=== PATIENT | female | born 1950 | race Asian ===

== ENCOUNTER 2018-10-02 18:35 | Inpatient (IN) | payer MEDICARE, OTHER ==
[2018-10-02] MEDS: Sodium Chloride 0.9% 10 ML Syringe FLUSH PRN (18:40)
[2018-10-02] MEDS ORDERED: Labetalol 20 MG/4 ML Syringe IVPUSH ONE (18:49)
[2018-10-02] MEDS ORDERED: Ondansetron 4 MG/2 ML SDV IVPUSH ONE (18:49)
--- NOTE | 2018-10-02 18:51 | EDM.PDOC ---
ED HPI GENERAL MEDICAL PROBLEM - General Stated Complaint: VOMITING L SIDED WEAKNESS Time Seen by Provider: 10/02/18 18:35 Source of Information: Reports: Patient, Family History Limitations: Reports: Physical Impairment - History of Present Illness INITIAL COMMENTS - FREE TEXT/NARRATIVE: 68 y.o. [place] female came with her family to the ed because of fever, N/V. Pt has left sided hemiparesis and is not able to elevate or stand on her right leg. She is bed ridden for several years, was in and out of hospice and needs 24 hours care. She is taken care by her boyfriend. On arrival, the pt was following commands, was not able to elevate her right leg. not moving her left upper and lower extremity. She was able to elevate her right for a sec or so only. Her BP was 210/120 on arrival. As per boyfriend, pt take her pills daily and eats well. Pt is not able to give a HPI, son is present as well. BP 229/ 120 Pulse 145 Temp 38.6 RR 20 Pulse ox 97% on RA. Onset Date: 08/29/18 Onset Time: 06:00 Duration: Week(s):, Chronic Location: Reports: Generalized Quality: Reports: Other Severity: Moderate Improves with: Reports: Rest Worsens with: Reports: Movement Context: Reports: Other Associated Symptoms: Reports: Weakness - Related Data Allergies Allergy/AdvReac Type Severity Reaction Status Date / Time No Known Allergies Allergy Verified 10/02/18 19:35 Home Meds: Home Meds Acetaminophen 650 mg PO BID 10/02/18 [History] Aspirin [Halfprin] 81 mg PO DAILY 10/02/18 [History] Lisinopril 20 mg PO DAILY 10/02/18 [History] cloNIDine [Catapres] 0.1 mg PO BID 10/02/18 [History] metFORMIN [Glucophage] 500 mg PO BIDMEALS 10/02/18 [History] Ondansetron [Zofran ODT] 4 mg PO Q6H PRN #10 tab.dis 10/03/18 [Rx] Sennosides/Docusate Sodium [Senna-S] 1 tab PO ASDIRECTED 10/03/18 [History] levoFLOXacin [Levaquin] 500 mg PO DAILY #5 tab 10/03/18 [Rx] Past Medical History HEENT History: Reports: Cataract Cardiovascular History: Reports: Hypertension 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: Social & Family History - Family History Family Medical History: Noncontributory - Caffeine Use Caffeine Use: Reports: None ED ROS GENERAL - Review of Systems Review Of Systems: Unable To Obtain ED EXAM, GI/ABD - Physical Exam Exam: See Below Exam Limited By: Physical Impairment General Appearance: Alert, Cachetic Eyes: Bilateral: Normal Appearance Ears: Normal External Exam Nose: Normal Inspection, No Blood Throat/Mouth: Normal Voice, No Airway Compromise Head: Atraumatic, Normocephalic Neck: Normal Inspection, Supple, Non-Tender Respiratory/Chest: No Respiratory Distress, Lungs Clear, Normal Breath Sounds, Chest Non-Tender Cardiovascular: Normal Peripheral Pulses, Regular Rate, Rhythm GI/Abdominal Exam: Normal Bowel Sounds, Soft, Non-Tender, No Organomegaly, No Distention, No Abnormal Bruit, No Mass, Pelvis Stable (Female) Exam: Deferred Rectal (Female) Exam: Deferred Back Exam: Normal Inspection, Full Range of Motion Extremities: Normal Inspection, Limited Range of Motion Neurological: Alert, Abnormal Gait (bedridden) Psychiatric: Normal Affect, Normal Mood Skin Exam: Warm, Dry, Normal Color Lymphatic: No Adenopathy EKG INTERPRETATION EKG Date: 10/02/18 Time: 18:50 Rhythm: NSR Rate (Beats/Min): 128 [place]: Normal P-Wave: Present QRS: Normal ST-T: Normal QT: Normal Comparison: NA - No Prior EKG Course - Vital Signs Text/Narrative:: 68 y.o. [place] female came with her family to the ed because of fever, N/V. Pt has left sided hemiparesis and is not able to elevate or stand on her right leg. She is bed ridden for several years, was in and out of hospice and needs 24 hours care. She is taken care by her boyfriend. On arrival, the pt was following commands, was not able to elevate her right leg. not moving her left upper and lower extremity. She was able to elevate her right for a sec or so only. Her BP was 210/120 on arrival. As per boyfriend, pt take her pills daily and eats well. Pt is not able to give a HPI, son is present as well. BP 229/ 120 Pulse 145 Temp 38.6 RR 20 Pulse ox 97% on RA. PE: Weak, cachectic female with Hypertension, bedridden. unkempt Imaging: CXR: NAD Labs: WBC 18K INR nl K 3.0 Lactic acid 2.7 UA: Hematuria Bcx drawn Impression: HTN urgency, Hypokalemia, elevated WBC (source of infection not found) DM, vulnerable adult, S/P CVAs, bed ridden, Sinus Tachycardia, Dehydration Tx: Labetolol, NS , Zofran, Levoquine Reexam: Improved Plan: Admit for obs Last Recorded V/S: Last Vital Signs Temp 37.9 C 10/05/18 19:30 Pulse 100 10/05/18 19:30 Resp 20 10/05/18 19:30 BP 145/85 H 10/05/18 20:03 Pulse Ox 96 10/05/18 19:30 - Orders/Labs/Meds Orders: Medication Orders Acetaminophen (Tylenol) 650 mg PO BID [facility] Last Admin: 10/05/18 20:03 Dose: 650 mg Admin: 10/05/18 10:33 Dose: 650 mg Admin: 10/04/18 21:07 Dose: 650 mg Admin: 10/04/18 10:40 Dose: 650 mg Admin: 10/03/18 21:56 Dose: Acetaminophen (Tylenol) 650 mg RECTAL Q4H PRN PRN Reason: Temperature Last Admin: 10/04/18 15:43 Dose: 650 mg Admin: 10/03/18 21:28 Dose: 650 mg Admin: 10/03/18 17:44 Dose: 650 mg Aspirin (Halfprin) 81 mg PO DAILY [facility] Last Admin: 10/05/18 10:32 Dose: 81 mg Admin: 10/04/18 10:40 Dose: 81 mg Clonidine HCl (Catapres) 0.1 mg PO BID [facility] Last Admin: 10/05/18 20:03 Dose: 0.1 mg Admin: 10/05/18 10:30 Dose: 0.1 mg Admin: 10/04/18 21:01 Dose: 0.1 mg Admin: 10/04/18 10:51 Dose: 0.1 mg Enoxaparin Sodium (Lovenox) 40 mg SUBCUT DAILY [facility] Last Admin: 10/05/18 10:33 Dose: 40 mg Admin: 10/04/18 10:51 Dose: 40 mg Levofloxacin/Dextrose 500 mg/ (Premix) 100 mls @ 100 mls/hr IV Q24H [facility] Last Admin: 10/05/18 10:36 Dose: 100 mls/hr Infusion: 10/04/18 11:43 Dose: 100 mls/hr Admin: 10/04/18 10:43 Dose: 100 mls/hr Insulin Human Lispro (Humalog) 0 unit SUBCUT TIDMEALS [facility]; Protocol Last Admin: 10/05/18 18:01 Dose: 3 units Admin: 10/05/18 11:47 Dose: 4 units Labetalol HCl (Normodyne) 10 mg IV ONETIME PRN; Protocol PRN Reason: Hypertension Last Admin: 10/03/18 21:28 Dose: 10 mg Lisinopril (Prinivil) 20 mg PO DAILY [facility] Last Admin: 10/05/18 10:33 Dose: 20 mg Admin: 10/04/18 10:50 Dose: 20 mg Ondansetron HCl (Zofran) 4 mg IVPUSH Q4H PRN PRN Reason: Nausea/Vomiting Last Admin: 10/04/18 12:20 Dose: 4 mg Admin: 10/03/18 13:30 Dose: 4 mg Potassium Chloride (Klor-Con M20) 20 meq PO BIDMEALS [facility] Last Admin: 10/05/18 18:09 Dose: 20 meq Admin: 10/05/18 10:32 Dose: 20 meq Sodium Chloride (Saline Flush) 10 ml FLUSH ASDIRECTED PRN PRN Reason: Keep Vein Open Last Admin: 10/05/18 11:38 Dose: 10 ml Admin: 10/05/18 09:00 Dose: 10 ml Admin: 10/04/18 19:48 Dose: 10 ml Admin: 10/04/18 17:01 Dose: 10 ml Admin: 10/04/18 12:00 Dose: 10 ml Admin: 10/04/18 09:00 Dose: 10 ml Admin: 10/03/18 06:08 Dose: 10 ml Admin: 10/03/18 05:58 Dose: 10 ml Admin: 10/02/18 18:40 Dose: 10 ml Vancomycin HCl (Pharmacy To Dose - Vancomycin) 1 dose .XX ASDIRECTED [facility] Labs: Laboratory Tests 10/02/18 10/02/18 10/02/18 Range/Units 19:00 19:00 19:00 WBC 17.6 H (4.5-12.0) X10-3/uL RBC 5.31 H (3.23-5.20) x10(6)uL Hgb 15.4 (11.5-15.5) g/dL Hct 45.8 (30.0-51.3) % MCV 86.3 (80-96) fL MCH 29.0 (27.7-33.6) pg MCHC 33.6 (32.2-35.4) g/dL RDW 12.4 (11.5-15.5) % Plt Count 333 (125-369) X10(3)uL MPV 8.5 (7.4-10.4) fL Add Manual Diff Yes Neutrophils % (Manual) 75 (46-82) % Band Neutrophils % 5 (0-6) % Lymphocytes % (Manual) 13 (13-37) % Monocytes % (Manual) 4 (4-12) % Eosinophils % (Manual) 3 (0-5) % PT 10.4 (8.7-11.1) INR 1.07 (0.89-1.13) Sodium 139 (135-145) mmol/L Potassium 3.0 L D (3.5-5.3) mmol/L Chloride 99 L (100-110) mmol/L Carbon Dioxide 27 (21-32) mmol/L BUN 11 (7-18) mg/dL Creatinine 0.6 (0.55-1.02) mg/dL Est Cr Clr Drug Dosing TNP Estimated GFR (MDRD) > 60 (>60) BUN/Creatinine Ratio 18.3 (9-20) Glucose 241 H D (80-116) mg/dL Lactic Acid (0.4-2.2) mmol/L Calcium 9.1 (8.6-10.2) mg/dL Troponin I (<0.017-0.056) ng/mL Urine Color (YELLOW) Urine Appearance (CLEAR) Urine pH (5.0-6.5) Ur Specific [place] (1.010-1.025) Urine Protein (NEGATIVE) mg/dL Urine Glucose (UA) (NORMAL) mg/dL Urine Ketones (NEGATIVE) mg/dL Urine Occult Blood (NEGATIVE) Urine Nitrite (NEGATIVE) Urine Bilirubin (NEGATIVE) Urine Urobilinogen (NEGATIVE) mg/dL Ur Leukocyte Esterase (NEGATIVE) Urine RBC (0-5) Urine WBC (0-5) Ur Squamous Epith Cells (NS,R,O) Urine Bacteria (NS) 10/02/18 10/02/18 10/02/18 Range/Units 19:00 19:00 19:30 WBC (4.5-12.0) X10-3/uL RBC (3.23-5.20) x10(6)uL Hgb (11.5-15.5) g/dL Hct (30.0-51.3) % MCV (80-96) fL MCH (27.7-33.6) pg MCHC (32.2-35.4) g/dL RDW (11.5-15.5) % Plt Count (125-369) X10(3)uL MPV (7.4-10.4) fL Add Manual Diff Neutrophils % (Manual) (46-82) % Band Neutrophils % (0-6) % Lymphocytes % (Manual) (13-37) % Monocytes % (Manual) (4-12) % Eosinophils % (Manual) (0-5) % PT (8.7-11.1) INR (0.89-1.13) Sodium (135-145) mmol/L Potassium (3.5-5.3) mmol/L Chloride (100-110) mmol/L Carbon Dioxide (21-32) mmol/L BUN (7-18) mg/dL Creatinine (0.55-1.02) mg/dL Est Cr Clr Drug Dosing Estimated GFR (MDRD) (>60) BUN/Creatinine Ratio (9-20) Glucose (80-116) mg/dL Lactic Acid 2.7 H (0.4-2.2) mmol/L Calcium (8.6-10.2) mg/dL Troponin I 0.021 (<0.017-0.056) ng/mL Urine Color Yellow (YELLOW) Urine Appearance Cloudy (CLEAR) Urine pH 6.0 (5.0-6.5) Ur Specific [place] 1.020 (1.010-1.025) Urine Protein Negative (NEGATIVE) mg/dL Urine Glucose (UA) >1000 H (NORMAL) mg/dL Urine Ketones 15 H (NEGATIVE) mg/dL Urine Occult Blood Moderate H (NEGATIVE) Urine Nitrite Negative (NEGATIVE) Urine Bilirubin Negative (NEGATIVE) Urine Urobilinogen Normal (NEGATIVE) mg/dL Ur Leukocyte Esterase Negative (NEGATIVE) Urine RBC 5-10 H (0-5) Urine WBC 0-5 (0-5) Ur Squamous Epith Cells Few H (NS,R,O) Urine Bacteria Moderate H (NS) Meds: Medications Generic Name Dose Route Start Last Admin Trade Name Freq PRN Reason Stop Dose Admin Acetaminophen 650 mg 10/03/18 21:00 10/05/18 20:03 Tylenol PO 650 mg BID VINAYAK Administration Acetaminophen 650 mg 10/03/18 17:30 10/04/18 15:43 Tylenol RECTAL 650 mg Q4H PRN Administration Temperature Aspirin 81 mg 10/04/18 09:00 10/05/18 10:32 Halfprin PO 81 mg DAILY VINAYAK Administration Clonidine HCl 0.1 mg 10/04/18 09:15 10/05/18 20:03 Catapres PO 0.1 mg BID VINAYAK Administration Enoxaparin Sodium 40 mg 10/04/18 09:15 10/05/18 10:33 Lovenox SUBCUT 40 mg DAILY VINAYAK Administration Levofloxacin/Dextrose 500 mg/ 100 mls @ 100 mls/hr 10/04/18 09:00 10/05/18 10 :36 Premix IV 100 mls/hr Q24H VINAYAK Administration Insulin Human Lispro 0 unit 10/05/18 12:00 10/05/18 18:01 Humalog SUBCUT 3 units TIDMEALS VINAYAK Administration Protocol Labetalol HCl 10 mg 10/03/18 17:00 10/03/18 21:28 Normodyne IV 10 mg ONETIME PRN Administration Hypertension Protocol Lisinopril 20 mg 10/04/18 09:15 10/05/18 10:33 Prinivil PO 20 mg DAILY VINAYAK Administration Ondansetron HCl 4 mg 10/03/18 11:32 10/04/18 12:20 Zofran IVPUSH 4 mg Q4H PRN Administration Nausea/Vomiting Potassium Chloride 20 meq 10/05/18 09:00 10/05/18 18:09 Klor-Con M20 PO 20 meq BIDMEALS VINAYAK Administration Sodium Chloride 10 ml 10/02/18 18:40 10/05/18 11:38 Saline Flush FLUSH 10 ml ASDIRECTED PRN Administration Keep Vein Open Vancomycin HCl 1 dose 10/03/18 17:15 Pharmacy To Dose - Vancomycin .XX ASDIRECTED VINAYAK Discontinued Medications Generic Name Dose Route Start Last Admin Trade Name Shen PRN Reason Stop Dose Admin Ceftriaxone Sodium 2 gm 10/03/18 17:00 10/04/18 16:57 Rocephin IVPUSH 2 gm Q24H VINAYAK Administration Sodium Chloride 1,000 mls @ 999 mls/hr 10/02/18 21:40 10/02/18 21:42 Normal Saline IV 10/02/18 22:40 999 mls/hr .BOLUS ONE Administration Levofloxacin/Dextrose 500 mg/ 100 mls @ 100 mls/hr 10/03/18 05:13 10/03/18 05 :52 Premix IV 10/03/18 06:12 100 mls/hr ONETIME ONE Administration Sodium Chloride 1,000 mls @ 125 mls/hr 10/03/18 11:45 10/03/18 23:05 Normal Saline IV 125 mls/hr ASDIRECTED VINAYAK Administration Vancomycin HCl 750 mg/ Sodium 250 mls @ 167 mls/hr 10/03/18 18:00 10/05/18 08 :36 Chloride IV Not Given Q12H VINAYAK Vancomycin HCl 750 mg/ 250 mls @ 166.667 mls/hr 10/05/18 08:00 10/05/18 07:12 Vancomycin HCl 500 mg/ Sodium IV 166.667 mls/hr Chloride Q12H VINAYAK Administration Labetalol HCl 10 mg 10/02/18 18:49 10/02/18 19:02 Normodyne IVPUSH 10/02/18 18:50 10 mg ONETIME ONE Administration Protocol Labetalol HCl 20 mg 10/03/18 16:35 10/03/18 16:53 Normodyne IVPUSH 10/03/18 16:36 20 mg ONETIME ONE Administration Protocol Ondansetron HCl 8 mg 10/02/18 18:49 10/02/18 18:55 Zofran IVPUSH 10/02/18 18:50 8 mg ONETIME ONE Administration Ondansetron HCl 8 mg 10/03/18 05:51 10/03/18 06:03 Zofran IVPUSH 10/03/18 05:52 8 mg ONETIME ONE Administration Ondansetron HCl Confirm 10/03/18 06:06 10/03/18 06:31 Zofran Administered 10/03/18 06:07 Not Given Dose 4 mg .ROUTE .STK-MED ONE Potassium Chloride 40 meq 10/02/18 20:39 10/02/18 20:43 Klor-Con M20 PO 10/02/18 20:40 40 meq ONETIME ONE Administration Vancomycin HCl Confirm 10/03/18 17:17 10/03/18 17:32 Vancomycin Administered 10/03/18 17:18 Not Given Dose 1 gm .ROUTE .STK-MED ONE Vancomycin HCl 1 dose 10/03/18 21:01 Pharmacy To Dose - Vancomycin .XX ASDIRECTED [facility] Departure - Departure Time of Disposition: 21:00 Disposition: Refer to Observation Condition: Fair Clinical Impression: HTN (hypertension) Qualifiers: Hypertension type: essential hypertension Qualified Code(s): I10 - Essential ( primary) hypertension - Discharge Information
[2018-10-02] MEDS ORDERED: Potassium Chloride 20 MEQ Tab.ER PO ONE (20:39)
[2018-10-02] MEDS ORDERED: Sodium Chloride 0.9% 1,000 ML IV ONE (21:40)
[2018-10-03] MEDS ORDERED: Levofloxacin/Dextrose 5%-Water 500 MG in Premix Bag 1 BAG IV ONE (05:13)
[2018-10-03] MEDS ORDERED: Ondansetron 4 MG/2 ML SDV IVPUSH ONE (05:51)
[2018-10-03] MEDS: Sodium Chloride 0.9% 10 ML Syringe FLUSH PRN ×2 (05:58→06:08)
[2018-10-03] MEDS ORDERED: Ondansetron 4 MG/2 ML SDV ONE (06:06)
--- NOTE | 2018-10-03 10:58 | PCM.HP ---
H&P History of Present Illness - General Date of Service: 10/03/18 Admit Problem/Dx: Admission Diagnosis/Problem Admission Diagnosis/Problem Hypertension Source of Information: Family, Old Records History Limitations: Reports: Language Barrier - History of Present Illness Initial Comments - Free Text/Narative: 68-year-old female who came to the ER because of fever and vomiting. Symptoms were sudden onset at 4 PM. She vomited at least 4 times last night and twice this morning. She denies abdominal pain diarrhea, cough chest pain or shortness of breath. She has a history of a pontine stroke;hypertension; uncontrolled type 2 diabetes and she is bedridden for a few months,wears depends. - Related Data Allergies/Adverse Reactions: Allergies Allergy/AdvReac Type Severity Reaction Status Date / Time No Known Allergies Allergy Verified 10/02/18 19:35 Home Medications: Home Meds Acetaminophen 650 mg PO BID 10/02/18 [History] Aspirin [Halfprin] 81 mg PO DAILY 10/02/18 [History] Lisinopril 20 mg PO DAILY 10/02/18 [History] cloNIDine [Catapres] 0.1 mg PO BID 10/02/18 [History] metFORMIN [Glucophage] 500 mg PO BIDMEALS 10/02/18 [History] Sennosides/Docusate Sodium [Senna-S] 1 tab PO ASDIRECTED 10/03/18 [History] Past Medical History HEENT History: Reports: Cataract Cardiovascular History: Reports: 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 Exam - Exam Exam: See Below - Vital Signs Vital Signs: Last Vital Signs Temp 99.6 F 10/03/18 08:01 Pulse 116 H 10/03/18 08:01 Resp 16 10/03/18 08:01 BP 144/74 H 10/03/18 08:01 Pulse Ox 96 10/03/18 08:01 Weight: 51.313 kg - Exam General: Alert HEENT: PERRLA Neck: Supple Lungs: Clear to Auscultation Cardiovascular: Regular Rate GI/Abdominal Exam: Normal Bowel Sounds, Soft, Non-Tender Extremities: Normal Inspection, No Pedal Edema Skin: Warm Neurological: Cranial Nerves Intact Neuro Extensive - Mental Status: Alert, Oriented x3, Memory Intact Psychiatric: Depressed - Patient Data Lab Results Last 24 hrs: Laboratory Results - last 24 hr 10/02/18 10/02/18 10/02/18 Range/Units 19:00 19:00 19:00 WBC 17.6 H (4.5-12.0) X10-3/uL RBC 5.31 H (3.23-5.20) x10(6)uL Hgb 15.4 (11.5-15.5) g/dL Hct 45.8 (30.0-51.3) % MCV 86.3 (80-96) fL MCH 29.0 (27.7-33.6) pg MCHC 33.6 (32.2-35.4) g/dL RDW 12.4 (11.5-15.5) % Plt Count 333 (125-369) X10(3)uL MPV 8.5 (7.4-10.4) fL Add Manual Diff Yes Neutrophils % (Manual) 75 (46-82) % Band Neutrophils % 5 (0-6) % Lymphocytes % (Manual) 13 (13-37) % Monocytes % (Manual) 4 (4-12) % Eosinophils % (Manual) 3 (0-5) % PT 10.4 (8.7-11.1) INR 1.07 (0.89-1.13) Sodium 139 (135-145) mmol/L Potassium 3.0 L D (3.5-5.3) mmol/L Chloride 99 L (100-110) mmol/L Carbon Dioxide 27 (21-32) mmol/L BUN 11 (7-18) mg/dL Creatinine 0.6 (0.55-1.02) mg/dL Est Cr Clr Drug Dosing TNP Estimated GFR (MDRD) > 60 (>60) BUN/Creatinine Ratio 18.3 (9-20) Glucose 241 H D (80-116) mg/dL Lactic Acid (0.4-2.2) mmol/L Calcium 9.1 (8.6-10.2) mg/dL Troponin I (<0.017-0.056) ng/mL Urine Color (YELLOW) Urine Appearance (CLEAR) Urine pH (5.0-6.5) Ur Specific [place] (1.010-1.025) Urine Protein (NEGATIVE) mg/dL Urine Glucose (UA) (NORMAL) mg/dL Urine Ketones (NEGATIVE) mg/dL Urine Occult Blood (NEGATIVE) Urine Nitrite (NEGATIVE) Urine Bilirubin (NEGATIVE) Urine Urobilinogen (NEGATIVE) mg/dL Ur Leukocyte Esterase (NEGATIVE) Urine RBC (0-5) Urine WBC (0-5) Ur Squamous Epith Cells (NS,R,O) Urine Bacteria (NS) 10/02/18 10/02/18 10/02/18 Range/Units 19:00 19:00 19:30 WBC (4.5-12.0) X10-3/uL RBC (3.23-5.20) x10(6)uL Hgb (11.5-15.5) g/dL Hct (30.0-51.3) % MCV (80-96) fL MCH (27.7-33.6) pg MCHC (32.2-35.4) g/dL RDW (11.5-15.5) % Plt Count (125-369) X10(3)uL MPV (7.4-10.4) fL Add Manual Diff Neutrophils % (Manual) (46-82) % Band Neutrophils % (0-6) % Lymphocytes % (Manual) (13-37) % Monocytes % (Manual) (4-12) % Eosinophils % (Manual) (0-5) % PT (8.7-11.1) INR (0.89-1.13) Sodium (135-145) mmol/L Potassium (3.5-5.3) mmol/L Chloride (100-110) mmol/L Carbon Dioxide (21-32) mmol/L BUN (7-18) mg/dL Creatinine (0.55-1.02) mg/dL Est Cr Clr Drug Dosing Estimated GFR (MDRD) (>60) BUN/Creatinine Ratio (9-20) Glucose (80-116) mg/dL Lactic Acid 2.7 H (0.4-2.2) mmol/L Calcium (8.6-10.2) mg/dL Troponin I 0.021 (<0.017-0.056) ng/mL Urine Color Yellow (YELLOW) Urine Appearance Cloudy (CLEAR) Urine pH 6.0 (5.0-6.5) Ur Specific [place] 1.020 (1.010-1.025) Urine Protein Negative (NEGATIVE) mg/dL Urine Glucose (UA) >1000 H (NORMAL) mg/dL Urine Ketones 15 H (NEGATIVE) mg/dL Urine Occult Blood Moderate H (NEGATIVE) Urine Nitrite Negative (NEGATIVE) Urine Bilirubin Negative (NEGATIVE) Urine Urobilinogen Normal (NEGATIVE) mg/dL Ur Leukocyte Esterase Negative (NEGATIVE) Urine RBC 5-10 H (0-5) Urine WBC 0-5 (0-5) Ur Squamous Epith Cells Few H (NS,R,O) Urine Bacteria Moderate H (NS) Result Diagrams: 10/02/18 19:00 10/02/18 19:00 - Problem List (1) Acute gastritis SNOMED Code(s): 86001562 ICD Code: K29.00 - ACUTE GASTRITIS WITHOUT BLEEDING Status: Acute Current Visit: Yes Qualifiers: Gastritis type: unspecified gastritis Gastritis bleeding: without bleeding Qualified Code(s): K29.00 - Acute gastritis without bleeding (2) UTI (urinary tract infection) SNOMED Code(s): 54944967 ICD Code: N39.0 - URINARY TRACT INFECTION, SITE NOT SPECIFIED Status: Acute Current Visit: Yes Qualifiers: Urinary tract infection type: acute cystitis Hematuria presence: without hematuria Qualified Code(s): N30.00 - Acute cystitis without hematuria (3) 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 SNOMED Code(s): 383950218 ICD Code: Z86.73 - PRSNL HX OF TIA (TIA), AND CEREB INFRC W/O RESID DEFICITS Status: Chronic Current Visit: Yes (4) HTN (hypertension) SNOMED Code(s): 98600415 ICD Code: I10 - ESSENTIAL (PRIMARY) HYPERTENSION Status: Chronic Current Visit: Yes Qualifiers: Hypertension type: essential hypertension Qualified Code(s): I10 - Essential (primary) hypertension (5) Uncontrolled diabetes mellitus SNOMED Code(s): 93892461, 690479328 ICD Code: E11.65 - TYPE 2 DIABETES MELLITUS WITH HYPERGLYCEMIA Status: Chronic Current Visit: Yes Qualifiers: Diabetes mellitus type: type 2 Glycemic state: with hyperglycemia Qualified Code(s): E11.65 - Type 2 diabetes mellitus with hyperglycemia (6) MDD (major depressive disorder) SNOMED Code(s): 387614439 ICD Code: F32.9 - MAJOR DEPRESSIVE DISORDER, SINGLE EPISODE, UNSPECIFIED Status: Acute Current Visit: Yes Qualifiers: Major depression recurrence: recurrent Psychotic features: with psychotic features (7) HLD (hyperlipidemia) SNOMED Code(s): 01144031 ICD Code: E78.5 - HYPERLIPIDEMIA, UNSPECIFIED Status: Acute Current Visit : Yes Qualifiers: Hyperlipidemia type: pure hypercholesterolemia Qualified Code(s): E78.00 - Pure hypercholesterolemia, unspecified; E78.0 - Pure hypercholesterolemia Problem List Initiated/Reviewed/Updated: Yes Orders Last 24hrs: Active Orders 24 hr Category Date Time Status Patient Status [ADT] Routine ADT 10/02/18 21:32 Active EKG Documentation Completion [RC] ASDIRECTED Care 10/02/18 18:48 Active Oxygen Therapy [RC] PRN Care 10/02/18 21:32 Active Up With Assistance [RC] ASDIRECTED Care 10/02/18 21:32 Active VTE/DVT Education [RC] Per Unit Routine Care 10/02/18 21:32 Active Vital Signs [RC] Q4H Care 10/02/18 21:32 Active Pureed Diet [DIET] Diet 10/03/18 Breakfast Active Thickened Liquids [DIET] Diet 10/03/18 Breakfast Active Chest 1V Frontal [CR] Stat Exams 10/02/18 18:49 Taken Head wo Cont [CT] Stat Exams 10/02/18 19:05 Taken CULTURE BLOOD [BC] Urgent Lab 10/02/18 19:00 Received CULTURE BLOOD [BC] Urgent Lab 10/03/18 05:22 Received Sodium Chloride 0.9% [Saline Flush] Med 10/02/18 18:40 Active 10 ml FLUSH ASDIRECTED PRN Blood Culture x2 Reflex Set [OM.PC] Urgent Oth 10/02/18 18:49 Ordered Blood Culture x2 Reflex Set [OM.PC] Urgent Oth 10/03/18 05:10 Ordered Blood Culture x2 Reflex Set [OM.PC] Urgent Oth 10/03/18 05:12 Ordered Peripheral IV Insertion Adult [OM.PC] Routine Oth 10/02/18 18:40 Ordered Resuscitation Status Routine Resus Stat 10/02/18 21:32 Ordered EKG 12 Lead [EK] Routine Ther 10/02/18 18:48 Ordered Medication Orders Sodium Chloride (Saline Flush) 10 ml FLUSH ASDIRECTED PRN PRN Reason: Keep Vein Open Last Admin: 10/03/18 06:08 Dose: 10 ml Admin: 10/03/18 05:58 Dose: 10 ml Admin: 10/02/18 18:40 Dose: 10 ml Assessment/Plan Comment:: This morning,she feels much better. Got 1 L of bolus at the ED. I am going to have her eat and drink,if able to keep down,will discharge home and follow up at the clinic. DC home with Debbie
[2018-10-03] MEDS: Sodium Chloride 0.9% 1,000 ML IV SCH ×2 (13:26→23:05)
[2018-10-03] MEDS: Ondansetron 4 MG/2 ML SDV IVPUSH PRN (13:30)
[2018-10-03] MEDS ORDERED: Labetalol 20 MG/4 ML Syringe IVPUSH ONE (16:35)
[2018-10-03] MEDS ORDERED: Labetalol 20 MG/4 ML Syringe IV PRN (17:00)
[2018-10-03] MEDS: cefTRIAXone 2 GM Vial IVPUSH SCH (17:08)
[2018-10-03] MEDS ORDERED: Vancomycin 1 GM SDV ONE (17:17)
[2018-10-03] MEDS: Acetaminophen 650 MG Supp RECTAL PRN ×2 (17:44→21:28)
[2018-10-03] MEDS: Acetaminophen 325 MG Tab PO SCH (21:56)
[2018-10-04] MEDS: Sodium Chloride 0.9% 10 ML Syringe FLUSH PRN ×4 (09:00→19:48)
--- NOTE | 2018-10-04 09:05 | PCM.PN ---
- General Info Date of Service: 10/04/18 Subjective Update: Mrs. Lees had a low-grade fever the last 24 hours, and was more lethargic.Her blood pressure has been uncontrolled. Blood cultures 1 out of 4 bottles is growing gram-negative bacilli. We tried feeding yesterday with no success, persistent throwing up and gagging was reported.. Functional Status: Reports: Pain Controlled - Review of Systems HEENT: Reports: No Symptoms Pulmonary: Reports: No Symptoms Cardiovascular: Reports: No Symptoms Gastrointestinal: Reports: Difficulty Swallowing, Vomiting. Denies: Abdominal Pain, Constipation Genitourinary: Reports: No Symptoms Musculoskeletal: Reports: No Symptoms - Patient Data Vitals - Most Recent: Last Vital Signs Temp 98.7 F 10/04/18 03:00 Pulse 106 H 10/04/18 03:00 Resp 20 10/04/18 03:00 BP 169/91 H 10/04/18 03:00 Pulse Ox 94 L 10/04/18 03:00 Weight - Most Recent: 51.313 kg I&O - Last 24 Hours: Intake & Output 10/03/18 10/04/18 10/04/18 22:59 06:59 14:59 Intake Total 787 1100 Balance 787 1100 Lab Results Last 24 Hours: Laboratory Results - last 24 hr 10/04/18 10/04/18 Range/Units 06:20 06:20 WBC 8.4 (4.5-12.0) X10-3/uL RBC 4.10 (3.23-5.20) x10(6)uL Hgb 11.9 D (11.5-15.5) g/dL Hct 35.8 D (30.0-51.3) % MCV 87.1 (80-96) fL MCH 29.0 (27.7-33.6) pg MCHC 33.3 (32.2-35.4) g/dL RDW 12.4 (11.5-15.5) % Plt Count 249 (125-369) X10(3)uL MPV 8.4 (7.4-10.4) fL Neut % (Auto) 73.6 (46-82) % Lymph % (Auto) 16.9 (13-37) % [place] % (Auto) 8.2 (4-12) % Eos % (Auto) 1 (1.0-5.0) % Baso % (Auto) 1 (0-2) % Neut # (Auto) 6.2 (1.6-8.3) # Lymph # (Auto) 1.4 (0.6-5.0) # [place] # (Auto) 0.7 (0.0-1.3) # Eos # (Auto) 0.1 (0.0-0.8) # Baso # (Auto) 0.0 (0.0-0.2) # Sodium 140 (135-145) mmol/L Potassium 3.1 L (3.5-5.3) mmol/L Chloride 105 D (100-110) mmol/L Carbon Dioxide 27 (21-32) mmol/L BUN 10 (7-18) mg/dL Creatinine 0.5 L (0.55-1.02) mg/dL Est Cr Clr Drug Dosing 82.80 mL/min Estimated GFR (MDRD) > 60 (>60) BUN/Creatinine Ratio 20.0 (9-20) Glucose 176 H (80-116) mg/dL Calcium 8.5 L (8.6-10.2) mg/dL Keron Results Last 24 Hours: Microbiology 10/02/18 19:00 Aerobic Blood Culture - Preliminary Blood - Venous NO GROWTH AFTER 1 DAY Anaerobic Blood Culture - Preliminary Gram Negative Rods 10/03/18 05:22 Aerobic Blood Culture - Preliminary Blood - Venous NO GROWTH AFTER 1 DAY Anaerobic Blood Culture - Preliminary NO GROWTH AFTER 1 DAY Med Orders - Current: Current Medications Acetaminophen (Tylenol) 650 mg PO BID [facility] Last Admin: 10/03/18 21:56 Dose: Not Given Acetaminophen (Tylenol) 650 mg RECTAL Q4H PRN PRN Reason: Temperature Last Admin: 10/03/18 21:28 Dose: 650 mg Aspirin (Halfprin) 81 mg PO DAILY [facility]1983 Ceftriaxone Sodium (Rocephin) 2 gm IVPUSH Q24H [facility] Last Admin: 10/03/18 17:08 Dose: 2 gm Vancomycin HCl 750 mg/ Sodium (Chloride) 250 mls @ 167 mls/hr IV Q12H [facility] Last Admin: 10/04/18 06:19 Dose: 167 mls/hr Levofloxacin/Dextrose 500 mg/ (Premix) 100 mls @ 100 mls/hr IV Q24H [facility] Labetalol HCl (Normodyne) 10 mg IV ONETIME PRN; Protocol PRN Reason: Hypertension Last Admin: 10/03/18 21:28 Dose: 10 mg Ondansetron HCl (Zofran) 4 mg IVPUSH Q4H PRN PRN Reason: Nausea/Vomiting Last Admin: 10/03/18 13:30 Dose: 4 mg Sodium Chloride (Saline Flush) 10 ml FLUSH ASDIRECTED PRN PRN Reason: Keep Vein Open Last Admin: 10/03/18 06:08 Dose: 10 ml Vancomycin HCl (Pharmacy To Dose - Vancomycin) 1 dose .XX ASDIRECTED [facility]AK Discontinued Medications Sodium Chloride (Normal Saline) 1,000 mls @ 999 mls/hr IV .BOLUS ONE Stop: 10/02/18 22:40 Last Admin: 10/02/18 21:42 Dose: 999 mls/hr Levofloxacin/Dextrose 500 mg/ (Premix) 100 mls @ 100 mls/hr IV ONETIME ONE Stop: 10/03/18 06:12 Last Admin: 10/03/18 05:52 Dose: 100 mls/hr Sodium Chloride (Normal Saline) 1,000 mls @ 125 mls/hr IV ASDIRECTED [facility]INAYAK Last Admin: 10/03/18 23:05 Dose: 125 mls/hr Labetalol HCl (Normodyne) 10 mg IVPUSH ONETIME ONE; Protocol Stop: 10/02/18 18:50 Last Admin: 10/02/18 19:02 Dose: 10 mg Labetalol HCl (Normodyne) 20 mg IVPUSH ONETIME ONE; Protocol Stop: 10/03/18 16:36 Last Admin: 10/03/18 16:53 Dose: 20 mg Ondansetron HCl (Zofran) 8 mg IVPUSH ONETIME ONE Stop: 10/02/18 18:50 Last Admin: 10/02/18 18:55 Dose: 8 mg Ondansetron HCl (Zofran) 8 mg IVPUSH ONETIME ONE Stop: 10/03/18 05:52 Last Admin: 10/03/18 06:03 Dose: 8 mg Ondansetron HCl (Zofran) Confirm Administered Dose 4 mg .ROUTE .STK-MED ONE Stop: 10/03/18 06:07 Last Admin: 10/03/18 06:31 Dose: Not Given Potassium Chloride (Klor-Con M20) 40 meq PO ONETIME ONE Stop: 10/02/18 20:40 Last Admin: 10/02/18 20:43 Dose: 40 meq Vancomycin HCl (Vancomycin) Confirm Administered Dose 1 gm .ROUTE .STK-MED ONE Stop: 10/03/18 17:18 Last Admin: 10/03/18 17:32 Dose: Not Given Vancomycin HCl (Pharmacy To Dose - Vancomycin) 1 dose .XX ASDIRECTED [facility]AK - Exam General: Alert, Oriented Neck: Supple Lungs: Clear to Auscultation Cardiovascular: Regular Rate GI/Abdominal Exam: Normal Bowel Sounds, Soft, Non-Tender - Problem List & Annotations (1) Bacteremia SNOMED Code(s): 6597390 Code(s): R78.81 - BACTEREMIA Status: Acute Current Visit: Yes (2) Acute gastritis SNOMED Code(s): 01779001 Code(s): K29.00 - ACUTE GASTRITIS WITHOUT BLEEDING Status: Acute Current Visit: Yes Qualifiers: Gastritis type: unspecified gastritis Gastritis bleeding: without bleeding Qualified Code(s): K29.00 - Acute gastritis without bleeding (3) UTI (urinary tract infection) SNOMED Code(s): 25962333 Code(s): N39.0 - URINARY TRACT INFECTION, SITE NOT SPECIFIED Status: Acute Current Visit: Yes Qualifiers: Urinary tract infection type: acute cystitis Hematuria presence: without hematuria Qualified Code(s): N30.00 - Acute cystitis without hematuria (4) 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 SNOMED Code(s): 566911936 Code(s): Z86.73 - PRSNL HX OF TIA (TIA), AND CEREB INFRC W/O RESID DEFICITS Status: Chronic Current Visit: Yes (5) HTN (hypertension) SNOMED Code(s): 83721585 Code(s): I10 - ESSENTIAL (PRIMARY) HYPERTENSION Status: Chronic Current Visit: Yes Qualifiers: Hypertension type: essential hypertension Qualified Code(s): I10 - Essential (primary) hypertension (6) Uncontrolled diabetes mellitus SNOMED Code(s): 13555240, 169747991 Code(s): E11.65 - TYPE 2 DIABETES MELLITUS WITH HYPERGLYCEMIA Status: Chronic Current Visit: Yes Qualifiers: Diabetes mellitus type: type 2 Glycemic state: with hyperglycemia Qualified Code(s): E11.65 - Type 2 diabetes mellitus with hyperglycemia (7) MDD (major depressive disorder) SNOMED Code(s): 117076068 Code(s): F32.9 - MAJOR DEPRESSIVE DISORDER, SINGLE EPISODE, UNSPECIFIED Status: Acute Current Visit: Yes Qualifiers: Major depression recurrence: recurrent Psychotic features: with psychotic features (8) HLD (hyperlipidemia) SNOMED Code(s): 90062449 Code(s): E78.5 - HYPERLIPIDEMIA, UNSPECIFIED Status: Acute Current Visit : Yes Qualifiers: Hyperlipidemia type: pure hypercholesterolemia Qualified Code(s): E78.00 - Pure hypercholesterolemia, unspecified; E78.0 - Pure hypercholesterolemia (9) H/O: stroke SNOMED Code(s): 813180190 Code(s): Z86.73 - PRSNL HX OF TIA (TIA), AND CEREB INFRC W/O RESID DEFICITS Status: Acute Current Visit: Yes - Problem List Review Problem List Initiated/Reviewed/Updated: Yes - My Orders Last 24 Hours: My Active Orders 10/03/18 11:00 Ready for Discharge [RC] PER UNIT ROUTINE 10/03/18 11:32 Ondansetron [Zofran] 4 mg IVPUSH Q4H PRN 10/03/18 17:00 Labetalol [Normodyne] 10 mg IV ONETIME PRN cefTRIAXone [Rocephin] 2 gm IVPUSH Q24H 10/03/18 17:15 Pharmacy to Dose - Vancomycin 1 dose .XX ASDIRECTED 10/03/18 17:30 Acetaminophen [Tylenol] 650 mg RECTAL Q4H PRN 10/03/18 18:00 Vancomycin 750 mg Sodium Chloride 0.9% [Normal Saline] 250 ml IV Q12H 10/03/18 21:00 Acetaminophen [Tylenol] 650 mg PO BID 10/04/18 08:39 Convert IV to Saline Lock [OM.PC] Routine 10/04/18 08:45 Levofloxacin/Dextrose 5%-Water [Levaquin in D5W 500 MG/100 ML] 500 mg Premix Bag 1 bag IV Q24H 10/04/18 09:00 Aspirin [Halfprin] 81 mg PO DAILY 10/05/18 05:11 BASIC METABOLIC PANEL,BMP [CHEM] AM CBC WITH AUTO DIFF [HEME] AM 10/05/18 05:30 VANCOMYCIN TROUGH [CHEM] Routine - Plan Plan:: I cancelled the discharge yesterday and switched to inpatient. Gave IV fluids overnight and added vancomycin. This morning we'll discontinue IV fluids and encourage oral intake. I have added Levaquin, until we obtain the identity of the organism in the blood. I will also restart home medications to control her blood pressure.DVT prophylaxis
[2018-10-04] MEDS: Aspirin 81 MG Tab.EC PO SCH (10:40)
[2018-10-04] MEDS: Acetaminophen 325 MG Tab PO SCH ×2 (10:40→21:07)
[2018-10-04] MEDS: Levofloxacin/Dextrose 5%-Water 500 MG in Premix Bag 1 BAG IV SCH (10:43)
[2018-10-04] MEDS: Lisinopril 20 MG Tab PO SCH (10:50)
[2018-10-04] MEDS: cloNIDine 0.1 MG Tab PO SCH ×2 (10:51→21:01)
[2018-10-04] MEDS: Enoxaparin 40 MG/0.4 ML Syringe SUBCUT SCH (10:51)
[2018-10-04] MEDS: Ondansetron 4 MG/2 ML SDV IVPUSH PRN (12:20)
[2018-10-04] MEDS: Acetaminophen 650 MG Supp RECTAL PRN (15:43)
[2018-10-04] MEDS: cefTRIAXone 2 GM Vial IVPUSH SCH (16:57)
[2018-10-05] MEDS ORDERED: Vancomycin 750 MG, Vancomycin 500 MG in Sodium Chloride 0.9% 250 ML IV SCH (08:00)
--- NOTE | 2018-10-05 08:50 | PCM.PN ---
- General Info Date of Service: 10/05/18 Subjective Update: She still had a temperature last night. But was able to eat yesterday,w/o vomiting.Has no pain. Functional Status: Reports: Pain Controlled - Review of Systems HEENT: Reports: No Symptoms Pulmonary: Reports: No Symptoms Cardiovascular: Reports: No Symptoms Gastrointestinal: Reports: No Symptoms Genitourinary: Reports: No Symptoms - Patient Data Vitals - Most Recent: Last Vital Signs Temp 98.4 F 10/05/18 04:00 Pulse 84 10/05/18 04:00 Resp 20 10/05/18 04:00 BP 150/80 H 10/05/18 04:00 Pulse Ox 97 10/05/18 04:00 Weight - Most Recent: 51.313 kg I&O - Last 24 Hours: Intake & Output 10/04/18 10/05/18 10/05/18 22:59 06:59 14:59 Intake Total 300 Balance 300 Lab Results Last 24 Hours: Laboratory Results - last 24 hr 10/05/18 10/05/18 10/05/18 Range/Units 06:00 06:00 06:00 WBC 7.0 (4.5-12.0) X10-3/uL RBC 4.36 (3.23-5.20) x10(6)uL Hgb 12.3 (11.5-15.5) g/dL Hct 37.8 (30.0-51.3) % MCV 86.8 (80-96) fL MCH 28.2 (27.7-33.6) pg MCHC 32.5 (32.2-35.4) g/dL RDW 12.3 (11.5-15.5) % Plt Count 280 (125-369) X10(3)uL MPV 8.2 (7.4-10.4) fL Neut % (Auto) 64.2 (46-82) % Lymph % (Auto) 24.0 (13-37) % [place] % (Auto) 10.2 (4-12) % Eos % (Auto) 1 (1.0-5.0) % Baso % (Auto) 0 (0-2) % Neut # (Auto) 4.5 (1.6-8.3) # Lymph # (Auto) 1.7 (0.6-5.0) # [place] # (Auto) 0.7 (0.0-1.3) # Eos # (Auto) 0.1 (0.0-0.8) # Baso # (Auto) 0.0 (0.0-0.2) # Sodium 138 (135-145) mmol/L Potassium 2.9 L (3.5-5.3) mmol/L Chloride 103 (100-110) mmol/L Carbon Dioxide 29 (21-32) mmol/L BUN 15 (7-18) mg/dL Creatinine 0.7 (0.55-1.02) mg/dL Est Cr Clr Drug Dosing 59.15 mL/min Estimated GFR (MDRD) > 60 (>60) BUN/Creatinine Ratio 21.4 H (9-20) Glucose 214 H (80-116) mg/dL Calcium 8.9 (8.6-10.2) mg/dL Vancomycin Trough 8.4 (<0.8) ug/mL Keron Results Last 24 Hours: Microbiology 10/02/18 19:00 Aerobic Blood Culture - Preliminary Blood - Venous NO GROWTH AFTER 2 DAYS Anaerobic Blood Culture - Final Enterobacter Aerogenes 10/03/18 05:22 Aerobic Blood Culture - Preliminary Blood - Venous NO GROWTH AFTER 2 DAYS Anaerobic Blood Culture - Preliminary NO GROWTH AFTER 2 DAYS Med Orders - Current: Current Medications Acetaminophen (Tylenol) 650 mg PO BID [facility] Last Admin: 10/04/18 21:07 Dose: 650 mg Acetaminophen (Tylenol) 650 mg RECTAL Q4H PRN PRN Reason: Temperature Last Admin: 10/04/18 15:43 Dose: 650 mg Aspirin (Halfprin) 81 mg PO DAILY [facility] Last Admin: 10/04/18 10:40 Dose: 81 mg Clonidine HCl (Catapres) 0.1 mg PO BID [facility] Last Admin: 10/04/18 21:01 Dose: 0.1 mg Enoxaparin Sodium (Lovenox) 40 mg SUBCUT DAILY [facility] Last Admin: 10/04/18 10:51 Dose: 40 mg Levofloxacin/Dextrose 500 mg/ (Premix) 100 mls @ 100 mls/hr IV Q24H [facility] Last Admin: 10/04/18 10:43 Dose: 100 mls/hr Labetalol HCl (Normodyne) 10 mg IV ONETIME PRN; Protocol PRN Reason: Hypertension Last Admin: 10/03/18 21:28 Dose: 10 mg Lisinopril (Prinivil) 20 mg PO DAILY [facility] Last Admin: 10/04/18 10:50 Dose: 20 mg Ondansetron HCl (Zofran) 4 mg IVPUSH Q4H PRN PRN Reason: Nausea/Vomiting Last Admin: 10/04/18 12:20 Dose: 4 mg Sodium Chloride (Saline Flush) 10 ml FLUSH ASDIRECTED PRN PRN Reason: Keep Vein Open Last Admin: 10/04/18 19:48 Dose: 10 ml Vancomycin HCl (Pharmacy To Dose - Vancomycin) 1 dose .XX ASDIRECTED [facility] Discontinued Medications Ceftriaxone Sodium (Rocephin) 2 gm IVPUSH Q24H [facility] Last Admin: 10/04/18 16:57 Dose: 2 gm Sodium Chloride (Normal Saline) 1,000 mls @ 999 mls/hr IV .BOLUS ONE Stop: 10/02/18 22:40 Last Admin: 10/02/18 21:42 Dose: 999 mls/hr Levofloxacin/Dextrose 500 mg/ (Premix) 100 mls @ 100 mls/hr IV ONETIME ONE Stop: 10/03/18 06:12 Last Admin: 10/03/18 05:52 Dose: 100 mls/hr Sodium Chloride (Normal Saline) 1,000 mls @ 125 mls/hr IV ASDIRECTED [facility] Last Admin: 10/03/18 23:05 Dose: 125 mls/hr Vancomycin HCl 750 mg/ Sodium (Chloride) 250 mls @ 167 mls/hr IV Q12H [facility] Last Admin: 10/05/18 08:36 Dose: Not Given Vancomycin HCl 750 mg/Vancomycin HCl 500 mg/ Sodium Chloride 250 mls @ 166.667 mls/hr IV Q12H [facility] Last Admin: 10/05/18 07:12 Dose: 166.667 mls/hr Labetalol HCl (Normodyne) 10 mg IVPUSH ONETIME ONE; Protocol Stop: 10/02/18 18:50 Last Admin: 10/02/18 19:02 Dose: 10 mg Labetalol HCl (Normodyne) 20 mg IVPUSH ONETIME ONE; Protocol Stop: 10/03/18 16:36 Last Admin: 10/03/18 16:53 Dose: 20 mg Ondansetron HCl (Zofran) 8 mg IVPUSH ONETIME ONE Stop: 10/02/18 18:50 Last Admin: 10/02/18 18:55 Dose: 8 mg Ondansetron HCl (Zofran) 8 mg IVPUSH ONETIME ONE Stop: 10/03/18 05:52 Last Admin: 10/03/18 06:03 Dose: 8 mg Ondansetron HCl (Zofran) Confirm Administered Dose 4 mg .ROUTE .STK-MED ONE Stop: 10/03/18 06:07 Last Admin: 10/03/18 06:31 Dose: Not Given Potassium Chloride (Klor-Con M20) 40 meq PO ONETIME ONE Stop: 10/02/18 20:40 Last Admin: 10/02/18 20:43 Dose: 40 meq Vancomycin HCl (Vancomycin) Confirm Administered Dose 1 gm .ROUTE .STK-MED ONE Stop: 10/03/18 17:18 Last Admin: 10/03/18 17:32 Dose: Not Given Vancomycin HCl (Pharmacy To Dose - Vancomycin) 1 dose .XX ASDIRECTED [facility]AYAK - Exam General: Alert, Oriented HEENT: Pupils Equal Neck: Supple Lungs: Clear to Auscultation - Problem List & Annotations (1) Bacteremia SNOMED Code(s): 0158681 Code(s): R78.81 - BACTEREMIA Status: Acute Current Visit: Yes (2) Acute gastritis SNOMED Code(s): 92325066 Code(s): K29.00 - ACUTE GASTRITIS WITHOUT BLEEDING Status: Acute Current Visit: Yes Qualifiers: Gastritis type: unspecified gastritis Gastritis bleeding: without bleeding Qualified Code(s): K29.00 - Acute gastritis without bleeding (3) UTI (urinary tract infection) SNOMED Code(s): 14415697 Code(s): N39.0 - URINARY TRACT INFECTION, SITE NOT SPECIFIED Status: Acute Current Visit: Yes Qualifiers: Urinary tract infection type: acute cystitis Hematuria presence: without hematuria Qualified Code(s): N30.00 - Acute cystitis without hematuria (4) 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 SNOMED Code(s): 780315455 Code(s): Z86.73 - PRSNL HX OF TIA (TIA), AND CEREB INFRC W/O RESID DEFICITS Status: Chronic Current Visit: Yes (5) HTN (hypertension) SNOMED Code(s): 97601339 Code(s): I10 - ESSENTIAL (PRIMARY) HYPERTENSION Status: Chronic Current Visit: Yes Qualifiers: Hypertension type: essential hypertension Qualified Code(s): I10 - Essential (primary) hypertension (6) Uncontrolled diabetes mellitus SNOMED Code(s): 51843740, 347647823 Code(s): E11.65 - TYPE 2 DIABETES MELLITUS WITH HYPERGLYCEMIA Status: Chronic Current Visit: Yes Qualifiers: Diabetes mellitus type: type 2 Glycemic state: with hyperglycemia Qualified Code(s): E11.65 - Type 2 diabetes mellitus with hyperglycemia (7) MDD (major depressive disorder) SNOMED Code(s): 341178502 Code(s): F32.9 - MAJOR DEPRESSIVE DISORDER, SINGLE EPISODE, UNSPECIFIED Status: Acute Current Visit: Yes Qualifiers: Major depression recurrence: recurrent Psychotic features: with psychotic features (8) HLD (hyperlipidemia) SNOMED Code(s): 44024031 Code(s): E78.5 - HYPERLIPIDEMIA, UNSPECIFIED Status: Acute Current Visit : Yes Qualifiers: Hyperlipidemia type: pure hypercholesterolemia Qualified Code(s): E78.00 - Pure hypercholesterolemia, unspecified; E78.0 - Pure hypercholesterolemia (9) H/O: stroke SNOMED Code(s): 413982602 Code(s): Z86.73 - PRSNL HX OF TIA (TIA), AND CEREB INFRC W/O RESID DEFICITS Status: Acute Current Visit: Yes (10) Hypokalemia SNOMED Code(s): 43549744 Code(s): E87.6 - HYPOKALEMIA Status: Acute Current Visit: Yes - Problem List Review Problem List Initiated/Reviewed/Updated: Yes - My Orders Last 24 Hours: My Active Orders 10/04/18 08:39 Convert IV to Saline Lock [OM.PC] Routine 10/04/18 09:00 Aspirin [Halfprin] 81 mg PO DAILY Levofloxacin/Dextrose 5%-Water [Levaquin in D5W 500 MG/100 ML] 500 mg Premix Bag 1 bag IV Q24H 10/04/18 09:15 Enoxaparin [Lovenox] 40 mg SUBCUT DAILY Lisinopril [Prinivil] 20 mg PO DAILY cloNIDine [Catapres] 0.1 mg PO BID 10/05/18 09:00 Potassium Chloride [Klor-Con M20] 20 meq PO BID 10/06/18 05:11 BASIC METABOLIC PANEL,BMP [CHEM] AM CBC WITH AUTO DIFF [HEME] AM 10/07/18 07:30 VANCOMYCIN TROUGH [CHEM] Timed - Plan Plan:: The [facility] shows bacteria sensitive to Levaquin.I will DC all others. Replace fluids. Possible DC tomorrow
[2018-10-05] MEDS: Sodium Chloride 0.9% 10 ML Syringe FLUSH PRN ×2 (09:00→11:38)
[2018-10-05] MEDS: cloNIDine 0.1 MG Tab PO SCH ×2 (10:30→20:03)
[2018-10-05] MEDS: Potassium Chloride 20 MEQ Tab.ER PO SCH ×2 (10:32→18:09)
[2018-10-05] MEDS: Aspirin 81 MG Tab.EC PO SCH (10:32)
[2018-10-05] MEDS: Acetaminophen 325 MG Tab PO SCH ×2 (10:33→20:03)
[2018-10-05] MEDS: Lisinopril 20 MG Tab PO SCH (10:33)
[2018-10-05] MEDS: Enoxaparin 40 MG/0.4 ML Syringe SUBCUT SCH (10:33)
[2018-10-05] MEDS: Levofloxacin/Dextrose 5%-Water 500 MG in Premix Bag 1 BAG IV SCH (10:36)
[2018-10-05] MEDS: Insulin Lispro 100 Unit/ML 3 ML KwikPen SUBCUT SCH ×2 (11:47→18:01)
--- NOTE | 2018-10-06 08:15 | PCM.PN ---
- General Info Date of Service: 10/06/18 Subjective Update: She has done remarkably well. Back to her baseline. Functional Status: Reports: Pain Controlled, Tolerating Diet - Review of Systems General: Reports: No Symptoms Pulmonary: Reports: Cough Cardiovascular: Reports: No Symptoms Gastrointestinal: Reports: No Symptoms Genitourinary: Reports: No Symptoms - Patient Data Vitals - Most Recent: Last Vital Signs Temp 98.3 F 10/06/18 04:00 Pulse 86 10/06/18 04:00 Resp 20 10/06/18 04:00 BP 164/101 H 10/06/18 04:00 Pulse Ox 97 10/06/18 04:00 Weight - Most Recent: 51.313 kg Lab Results Last 24 Hours: Laboratory Results - last 24 hr 10/05/18 10/05/18 10/06/18 Range/Units 11:40 17:52 06:10 WBC 6.7 (4.5-12.0) X10-3/uL RBC 4.33 (3.23-5.20) x10(6)uL Hgb 12.5 (11.5-15.5) g/dL Hct 37.4 (30.0-51.3) % MCV 86.3 (80-96) fL MCH 28.8 (27.7-33.6) pg MCHC 33.4 (32.2-35.4) g/dL RDW 12.6 (11.5-15.5) % Plt Count 291 (125-369) X10(3)uL MPV 8.4 (7.4-10.4) fL Add Manual Diff Yes Neutrophils % (Manual) 66 (46-82) % Lymphocytes % (Manual) 22 (13-37) % Monocytes % (Manual) 9 (4-12) % Eosinophils % (Manual) 3 (0-5) % Sodium (135-145) mmol/L Potassium (3.5-5.3) mmol/L Chloride (100-110) mmol/L Carbon Dioxide (21-32) mmol/L BUN (7-18) mg/dL Creatinine (0.55-1.02) mg/dL Est Cr Clr Drug Dosing mL/min Estimated GFR (MDRD) (>60) BUN/Creatinine Ratio (9-20) Glucose (80-116) mg/dL POC Glucose 329 H 253 H (80-116) mg/dL Calcium (8.6-10.2) mg/dL 10/06/18 10/06/18 Range/Units 06:10 07:48 WBC (4.5-12.0) X10-3/uL RBC (3.23-5.20) x10(6)uL Hgb (11.5-15.5) g/dL Hct (30.0-51.3) % MCV (80-96) fL MCH (27.7-33.6) pg MCHC (32.2-35.4) g/dL RDW (11.5-15.5) % Plt Count (125-369) X10(3)uL MPV (7.4-10.4) fL Add Manual Diff Neutrophils % (Manual) (46-82) % Lymphocytes % (Manual) (13-37) % Monocytes % (Manual) (4-12) % Eosinophils % (Manual) (0-5) % Sodium 143 (135-145) mmol/L Potassium 3.2 L (3.5-5.3) mmol/L Chloride 107 (100-110) mmol/L Carbon Dioxide 26 (21-32) mmol/L BUN 18 (7-18) mg/dL Creatinine 0.8 (0.55-1.02) mg/dL Est Cr Clr Drug Dosing 51.75 mL/min Estimated GFR (MDRD) > 60 (>60) BUN/Creatinine Ratio 22.5 H (9-20) Glucose 244 H (80-116) mg/dL POC Glucose 236 H (80-116) mg/dL Calcium 9.0 (8.6-10.2) mg/dL Keron Results Last 24 Hours: Microbiology 10/03/18 05:22 Aerobic Blood Culture - Preliminary Blood - Venous NO GROWTH AFTER 3 DAYS Anaerobic Blood Culture - Preliminary NO GROWTH AFTER 3 DAYS 10/02/18 19:00 Aerobic Blood Culture - Preliminary Blood - Venous NO GROWTH AFTER 3 DAYS Anaerobic Blood Culture - Final Enterobacter Aerogenes Med Orders - Current: Current Medications Acetaminophen (Tylenol) 650 mg PO BID [facility] Last Admin: 10/05/18 20:03 Dose: 650 mg Acetaminophen (Tylenol) 650 mg RECTAL Q4H PRN PRN Reason: Temperature Last Admin: 10/04/18 15:43 Dose: 650 mg Aspirin (Halfprin) 81 mg PO DAILY [facility] Last Admin: 10/05/18 10:32 Dose: 81 mg Clonidine HCl (Catapres) 0.1 mg PO BID [facility] Last Admin: 10/05/18 20:03 Dose: 0.1 mg Enoxaparin Sodium (Lovenox) 40 mg SUBCUT DAILY [facility] Last Admin: 10/05/18 10:33 Dose: 40 mg Levofloxacin/Dextrose 500 mg/ (Premix) 100 mls @ 100 mls/hr IV Q24H [facility] Last Admin: 10/05/18 10:36 Dose: 100 mls/hr Insulin Human Lispro (Humalog) 0 unit SUBCUT TIDMEALS [facility]; Protocol Last Admin: 10/05/18 18:01 Dose: 3 units Labetalol HCl (Normodyne) 10 mg IV ONETIME PRN; Protocol PRN Reason: Hypertension Last Admin: 10/03/18 21:28 Dose: 10 mg Lisinopril (Prinivil) 20 mg PO DAILY [facility] Last Admin: 10/05/18 10:33 Dose: 20 mg Ondansetron HCl (Zofran) 4 mg IVPUSH Q4H PRN PRN Reason: Nausea/Vomiting Last Admin: 10/04/18 12:20 Dose: 4 mg Potassium Chloride (Klor-Con M20) 20 meq PO BIDMEALS [facility] Last Admin: 10/05/18 18:09 Dose: 20 meq Sodium Chloride (Saline Flush) 10 ml FLUSH ASDIRECTED PRN PRN Reason: Keep Vein Open Last Admin: 10/05/18 11:38 Dose: 10 ml Discontinued Medications Ceftriaxone Sodium (Rocephin) 2 gm IVPUSH Q24H [facility] Last Admin: 10/04/18 16:57 Dose: 2 gm Sodium Chloride (Normal Saline) 1,000 mls @ 999 mls/hr IV .BOLUS ONE Stop: 10/02/18 22:40 Last Admin: 10/02/18 21:42 Dose: 999 mls/hr Levofloxacin/Dextrose 500 mg/ (Premix) 100 mls @ 100 mls/hr IV ONETIME ONE Stop: 10/03/18 06:12 Last Admin: 10/03/18 05:52 Dose: 100 mls/hr Sodium Chloride (Normal Saline) 1,000 mls @ 125 mls/hr IV ASDIRECTED [facility] Last Admin: 10/03/18 23:05 Dose: 125 mls/hr Vancomycin HCl 750 mg/ Sodium (Chloride) 250 mls @ 167 mls/hr IV Q12H [facility] Last Admin: 10/05/18 08:36 Dose: Not Given Vancomycin HCl 750 mg/Vancomycin HCl 500 mg/ Sodium Chloride 250 mls @ 166.667 mls/hr IV Q12H [facility] Last Admin: 10/05/18 07:12 Dose: 166.667 mls/hr Labetalol HCl (Normodyne) 10 mg IVPUSH ONETIME ONE; Protocol Stop: 10/02/18 18:50 Last Admin: 10/02/18 19:02 Dose: 10 mg Labetalol HCl (Normodyne) 20 mg IVPUSH ONETIME ONE; Protocol Stop: 10/03/18 16:36 Last Admin: 10/03/18 16:53 Dose: 20 mg Ondansetron HCl (Zofran) 8 mg IVPUSH ONETIME ONE Stop: 10/02/18 18:50 Last Admin: 10/02/18 18:55 Dose: 8 mg Ondansetron HCl (Zofran) 8 mg IVPUSH ONETIME ONE Stop: 10/03/18 05:52 Last Admin: 10/03/18 06:03 Dose: 8 mg Ondansetron HCl (Zofran) Confirm Administered Dose 4 mg .ROUTE .STK-MED ONE Stop: 10/03/18 06:07 Last Admin: 10/03/18 06:31 Dose: Not Given Potassium Chloride (Klor-Con M20) 40 meq PO ONETIME ONE Stop: 10/02/18 20:40 Last Admin: 10/02/18 20:43 Dose: 40 meq Vancomycin HCl (Pharmacy To Dose - Vancomycin) 1 dose .XX ASDIRECTED [facility] Vancomycin HCl (Vancomycin) Confirm Administered Dose 1 gm .ROUTE .STK-MED ONE Stop: 10/03/18 17:18 Last Admin: 10/03/18 17:32 Dose: Not Given Vancomycin HCl (Pharmacy To Dose - Vancomycin) 1 dose .XX ASDIRECTED [facility] - Exam General: Alert, Oriented Neck: Supple Lungs: Crackles Cardiovascular: Regular Rate - Problem List & Annotations (1) Bacteremia SNOMED Code(s): 3340510 Code(s): R78.81 - BACTEREMIA Status: Acute Current Visit: Yes (2) Acute gastritis SNOMED Code(s): 26632246 Code(s): K29.00 - ACUTE GASTRITIS WITHOUT BLEEDING Status: Acute Current Visit: Yes Qualifiers: Gastritis type: unspecified gastritis Gastritis bleeding: without bleeding Qualified Code(s): K29.00 - Acute gastritis without bleeding (3) UTI (urinary tract infection) SNOMED Code(s): 24905796 Code(s): N39.0 - URINARY TRACT INFECTION, SITE NOT SPECIFIED Status: Acute Current Visit: Yes Qualifiers: Urinary tract infection type: acute cystitis Hematuria presence: without hematuria Qualified Code(s): N30.00 - Acute cystitis without hematuria (4) 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 SNOMED Code(s): 362523619 Code(s): Z86.73 - PRSNL HX OF TIA (TIA), AND CEREB INFRC W/O RESID DEFICITS Status: Chronic Current Visit: Yes (5) HTN (hypertension) SNOMED Code(s): 74160463 Code(s): I10 - ESSENTIAL (PRIMARY) HYPERTENSION Status: Chronic Current Visit: Yes Qualifiers: Hypertension type: essential hypertension Qualified Code(s): I10 - Essential (primary) hypertension (6) Uncontrolled diabetes mellitus SNOMED Code(s): 58464438, 914432661 Code(s): E11.65 - TYPE 2 DIABETES MELLITUS WITH HYPERGLYCEMIA Status: Chronic Current Visit: Yes Qualifiers: Diabetes mellitus type: type 2 Glycemic state: with hyperglycemia Qualified Code(s): E11.65 - Type 2 diabetes mellitus with hyperglycemia (7) MDD (major depressive disorder) SNOMED Code(s): 038718828 Code(s): F32.9 - MAJOR DEPRESSIVE DISORDER, SINGLE EPISODE, UNSPECIFIED Status: Acute Current Visit: Yes Qualifiers: Major depression recurrence: recurrent Psychotic features: with psychotic features (8) HLD (hyperlipidemia) SNOMED Code(s): 66025025 Code(s): E78.5 - HYPERLIPIDEMIA, UNSPECIFIED Status: Acute Current Visit : Yes Qualifiers: Hyperlipidemia type: pure hypercholesterolemia Qualified Code(s): E78.00 - Pure hypercholesterolemia, unspecified; E78.0 - Pure hypercholesterolemia (9) H/O: stroke SNOMED Code(s): 940671996 Code(s): Z86.73 - PRSNL HX OF TIA (TIA), AND CEREB INFRC W/O RESID DEFICITS Status: Acute Current Visit: Yes (10) Hypokalemia SNOMED Code(s): 01234796 Code(s): E87.6 - HYPOKALEMIA Status: Acute Current Visit: Yes - Problem List Review Problem List Initiated/Reviewed/Updated: Yes - My Orders Last 24 Hours: My Active Orders 10/05/18 09:00 Potassium Chloride [Klor-Con M20] 20 meq PO BIDMEALS 10/05/18 11:30 Accu Check [Blood Glucose Check, Bedside] [RC] TIDMEALS 10/05/18 12:00 Insulin Lispro [HumaLOG] See Protocol SUBCUT TIDMEALS 10/07/18 07:30 VANCOMYCIN TROUGH [CHEM] Timed - Plan Plan:: She could go home today. Follow up in a week with PCP
[2018-10-06] MEDS: Insulin Lispro 100 Unit/ML 3 ML KwikPen SUBCUT SCH ×2 (09:23→13:30)
[2018-10-06] MEDS: Acetaminophen 325 MG Tab PO SCH (09:25)
[2018-10-06] MEDS: Aspirin 81 MG Tab.EC PO SCH (09:25)
[2018-10-06] MEDS: Lisinopril 20 MG Tab PO SCH (09:27)
[2018-10-06] MEDS: Potassium Chloride 20 MEQ Tab.ER PO SCH (09:27)
[2018-10-06] MEDS: cloNIDine 0.1 MG Tab PO SCH (09:27)
[2018-10-06] MEDS: Enoxaparin 40 MG/0.4 ML Syringe SUBCUT SCH (09:27)
[2018-10-06] MEDS: Sodium Chloride 0.9% 10 ML Syringe FLUSH PRN (09:41)
[2018-10-06] MEDS: Levofloxacin/Dextrose 5%-Water 500 MG in Premix Bag 1 BAG IV SCH (09:41)
--- NOTE | 2018-10-06 16:24 | DISCH ---
DISCHARGE DATE: 10/06/2018 REASON FOR ADMISSION: 1. Vomiting. 2. Urinary tract infection. 3. Hypertension. 4. Type 2 diabetes. 5. History of stroke. DISCHARGE DIAGNOSES: 1. Bacteremia. 2. Urinary tract infection. 3. Vomiting. 4. Uncontrolled hypertension. 5. Uncontrolled type 2 diabetes. 6. History of stroke. BRIEF HISTORY AND HOSPITAL COURSE: A 68-year-old female, brought in for vomiting, decreased oral intake, lethargy, and fever. Urine showed packed white cells and eventually grew gram-negative bacilli. Blood pressure was difficult to control initially needing IV labetalol. She was placed initially on Levaquin, vancomycin, and Zosyn empirically until the culture showed that the bacteria was sensitive to Levaquin. She did well 24 to 48 hours before discharge, back to her baseline. She is discharged today to home. DISCHARGE MEDICATIONS: 1. Levaquin 500 mg daily for 5 days. 2. Clonidine 0.1 mg b.i.d. 3. 81 mg of aspirin a day. 4. Klor-Con 20 mEq daily. 5. Lisinopril 10 mg a day. 6. Metformin 500 mg b.i.d. 7. Zofran 4 mg q.6 hours p.r.n. 8. Senna one tablet p.r.n. FOLLOWUP: She is advised to see her PCP on , Dr. Velez. Note that, I spent more than 35 minutes in the discharge. /[id number] CECELIA/[place]
== END 2018-10-06 16:05 | disposition home or self-care (01) | DRG 690 ==
LOC: FB.ED 18:35 → FB.MS 21:43 → OBSVTOIN 10-03 16:51
PROVIDERS: ADMIT Emergency Medicine; ATTEND Family Medicine
DX: R50.9 Fever, unspecified (principal); R11.2 Nausea with vomiting, unspecified; N39.0 Urinary tract infection, site not specified; R78.81 Bacteremia; N30.00 Acute cystitis without hematuria; G81.94 Hemiplegia, unspecified affecting left nondominant side; Z66 Do not resuscitate; I10 Essential (primary) hypertension; E11.65 Type 2 diabetes mellitus with hyperglycemia; Z74.01 Bed confinement status; Z86.73 Personal history of transient ischemic attack (TIA), and cerebral infarction without residual deficits; E87.6 Hypokalemia; F32.9 Major depressive disorder, single episode, unspecified; Z79.82 Long term (current) use of aspirin; Z79.84 Long term (current) use of oral hypoglycemic drugs
CPT/HCPCS: 36415 ×2; 70450; 71045; 80048; 81001; 83605; 84484; 85025; 85610; 87040 ×2; 87186; 93005; 96374; 96375; 99285; A9270; J1956; J2405 ×3; J3490; J7030 ×2; 80202; 82962; J0696; J1650; J1815; J3370; J7050